=== PATIENT | female | born 1940 | race Caucasian/White ===

== ENCOUNTER 2016-09-13 09:15 | Inpatient (IN) | payer OTHER ==
[~2016-09-13 09:15] MED LIST: ACETAMINOPHEN 325 MG TAB PO ONE; CEFAZOLIN 2 GM/DEXTR 100 ML IV ONE; CHLORHEXIDINE GLUC HIBICLENS 118 ML BTL TP ONE; DEXAMETHASONE 4 MG/ML VIAL IVP ONE; FAMOTIDINE 20 MG TAB PO ONE; ROPI/epiNEPH/KETOROLAC JOINT COCKTAIL IU ONE; TRANEXAMIC ACID 3,000 MG in NS 50 ML IRR ONE
[2016-11-29] MEDS ORDERED: ACETAMINOPHEN 325 MG TAB PO ONE (06:00)
[2016-11-29] MEDS ORDERED: DEXAMETHASONE 4 MG/ML VIAL IVP ONE (06:00)
[2016-11-29] MEDS ORDERED: FAMOTIDINE 20 MG TAB PO ONE (06:00)
[2016-11-29] MEDS ORDERED: CEFAZOLIN 2 GM/DEXTR 100 ML IV ONE (06:00)
[2016-11-29] MEDS ORDERED: ROPI/epiNEPH/KETOROLAC JOINT COCKTAIL IU ONE (06:00)
[2016-11-29] MEDS ORDERED: CHLORHEXIDINE GLUC HIBICLENS 118 ML BTL TP ONE (06:00)
[2016-11-29] MEDS ORDERED: TRANEXAMIC ACID 3,000 MG in NS 50 ML IRR ONE (06:00)
[2016-11-29] MEDS ORDERED: SKIN ADHESIVE (DERMABOND) 1 EACH TP ONE (06:43)
[2016-11-29] MEDS ORDERED: TRANEXAMIC ACID 3,000 MG/50 ML BAG IRR ONE (06:43)
[2016-11-29] MEDS ORDERED: VANCOMYCIN 1 GM VIAL IV ONE (06:43)
[2016-11-29] MEDS ORDERED: LIDOCAINE 1% 2 ML INJ ONE (07:20)
[2016-11-29] MEDS ORDERED: fentaNYL 100 MCG/2 ML INJ ONE (07:40)
[2016-11-29] MEDS ORDERED: PROPOFOL/EMULSION 500 MG/50 ML BOTTLE IV ONE (07:41)
[2016-11-29 07:51] LABS: % IMMATURE GRANULYOCYTES 0.2 % (0.0-1.1); ABSOLUTE IMMATURE GRANULOCYTES 0.01 10^3/uL (0.00-0.10); ADD DIFF? NO; ADD MORPH? NO; ADD SCAN? NO; ATYPICAL LYMPHOCYTE FLAG 10 (0-99); FRAGMENT RBC FLAG 0 (0-99); HEMATOCRIT 39.8 % (38.0-47.0); HEMOGLOBIN 13.8 g/dL (12.6-16.3); LEFT SHIFT FLG 0 (0-99); LIPEMIA HEMOLYSIS FLAG 90 (0-99); MEAN CELL HEMOGLOBIN 31.8 pg (27.9-34.1); MEAN CELL HEMOGLOBIN CONCENTR. 34.7 g/dL (32.4-36.7); MEAN CELL VOLUME 91.7 fL (81.5-99.8); MEAN PLATELET VOLUME 8.5 fL (8.7-11.7); PLATELET CLUMPS FLAG 0 (0-99); PLATELET COUNT 274 10^3/uL (150-400); RED BLOOD CELL COUNT 4.34 10^6/uL (4.18-5.33); RED CELL DISTRIBUTION WIDTH 12.5 % (11.5-15.2)
[2016-11-29] MEDS ORDERED: LIDOCAINE 1% 5 ML SDV ID PRN (08:03)
[2016-11-29] MEDS ORDERED: LR 1,000 ML IV ONE (08:03)
[2016-11-29] MEDS ORDERED: MIDAZOLAM 2 MG/2 ML VIAL ONE ×2 (08:21→08:23)
--- NOTE | 2016-11-29 10:09 | POSTOPPROG ---
Post Op Note Date of Operation: 11/29/16 Surgeon: Abelardo Webb Commercial Attache: leon webb Anesthesiologist: dr. epps Anesthesia: Spinal, Other (Specify) (adductor canal block) Pre-op Diagnosis: right knee OA Post-op Diagnosis: same Indication: right knee pain due to OA that failed conservative measures Procedure: R TKA Findings: severe knee OA Inf/Abcess present in the surg proc area at time of surgery?: No EBL: 50-100
[2016-11-29] MEDS ORDERED: LACTULOSE 20 GM/30 ML UDCUP PO PRN (10:10)
[2016-11-29] MEDS ORDERED: POLYETHYLENE GLYCOL 3350 17 GM PKT PO PRN (10:10)
[2016-11-29] MEDS ORDERED: PHARMACY PAIN CONSULT 1 EA MISC PRN (10:10)
[2016-11-29] MEDS ORDERED: TEMAZEPAM 15 MG CAP PO PRN (10:10)
[2016-11-29] MEDS ORDERED: METOCLOPRAMIDE 10 MG/2 ML VIAL IVP PRN (10:10)
[2016-11-29] MEDS ORDERED: PROMETHAZINE HCL 25 MG SUPPR PR PRN (10:10)
[2016-11-29] MEDS ORDERED: DIPHENOXYLATE/ATROPINE LOMOTIL 1 TAB PO PRN (10:10)
[2016-11-29] MEDS ORDERED: diphenhydrAMINE 25 MG CAP PO PRN (10:10)
[2016-11-29] MEDS ORDERED: MAGNESIUM HYDROXIDE 30 ML UDCUP PO PRN (10:10)
[2016-11-29] MEDS ORDERED: ONDANSETRON DISINTEGRATING 4 MG TAB PO PRN (10:10)
[2016-11-29] MEDS ORDERED: ONDANSETRON 4 MG/2 ML VIAL IVP PRN (10:10)
[2016-11-29] MEDS ORDERED: PROMETHAZINE HCL 25 MG/ML INJ IVP PRN (10:10)
[2016-11-29] MEDS ORDERED: BISACODYL 10 MG SUPP PR PRN (10:10)
[2016-11-29] MEDS ORDERED: LR 1,000 ML IV SCH (10:30)
[2016-11-29] MEDS: oxyCODONE IR 5 MG TAB PO PRN ×4 (12:05→23:43)
[2016-11-29] MEDS: ACETAMINOPHEN 325 MG TAB PO SCH ×3 (12:06→23:44)
[2016-11-29] MEDS: ceFAZolin 2 GM/DEXTROSE 100 ML IV SCH ×2 (14:54→22:01)
[2016-11-29] MEDS: CYCLOBENZAPRINE 10 MG TAB PO PRN (18:33)
[2016-11-29] MEDS: ASPIRIN 325 MG TAB PO SCH (20:13)
[2016-11-29] MEDS: FAMOTIDINE 20 MG TAB PO SCH (20:13)
[2016-11-29] MEDS: SENNOSIDES/DOCUSATE SODIUM TAB PO SCH (20:14)
[2016-11-29] MEDS ORDERED: clonazePAM 0.5 MG TAB PO SCH (21:00)
[2016-11-29] MEDS ORDERED: SERTRALINE HCL 50 MG TAB PO SCH (22:00)
[2016-11-30 03:37] VITALS: PULSE 62
[2016-11-30] MEDS: ACETAMINOPHEN 325 MG TAB PO SCH ×2 (05:35→11:59)
[2016-11-30] MEDS: oxyCODONE IR 5 MG TAB PO PRN ×3 (05:35→11:59)
[2016-11-30 05:49] LABS: HEMATOCRIT 31.5 % (38.0-47.0)
[2016-11-30] MEDS ORDERED: LEVOTHYROXINE 88 MCG TAB PO SCH (06:00)
[2016-11-30 06:02] LABS: ANION GAP 6 mEq/L (8-16); CALCIUM 8.8 mg/dL (8.5-10.4); CARBON DIOXIDE 24 mEq/l (22-31); CHLORIDE 102 mEq/L (97-110); CREATININE 0.8 mg/dL (0.6-1.0); GLOMERULAR FILTRATION RATE > 60; GLUCOSE 90 mg/dL (70-100); POTASSIUM 3.8 mEq/L (3.5-5.2); SODIUM 132 mEq/L (134-144)
[2016-11-30 08:09] VITALS: BP 137/75; RESP 16; TEMP 97.7
[2016-11-30] MEDS: ASPIRIN 325 MG TAB PO SCH (08:24)
[2016-11-30] MEDS: FAMOTIDINE 20 MG TAB PO SCH (08:25)
[2016-11-30] MEDS: SENNOSIDES/DOCUSATE SODIUM TAB PO SCH (08:25)
[2016-11-30] MEDS: CYCLOBENZAPRINE 10 MG TAB PO PRN (08:25)
[2016-11-30] MEDS ORDERED: SERTRALINE HCL 50 MG TAB PO SCH (09:00)
[2016-11-30] MEDS ORDERED: FORMOTEROL IH SCH (09:00)
[2016-11-30] MEDS ORDERED: BUDESONIDE IH SCH (09:00)
[2016-11-30] MEDS ORDERED: NON-FORMULARY NEW DRUG (Fluticasone Nasal [Flonase Nasal Spray] 1 SPRAYS) EACHNARE SCH (09:00)
[2016-11-30] MEDS ORDERED: FLUTICASONE NASAL 120 SPRAYS/16 GM MDI EACHNARE SCH (09:00)
--- NOTE | 2016-11-30 09:18 | SOAPPROG ---
SOAP Progress Note Assessment/Plan: Assessment: Patient is doing well POD 1 s/p R TKA 1.Pain management: pain is well controlled on oral pain meds 2.Anemia: level is expected initially postop. Asymptomatic. Cont to monitor for symptoms 3.VTE ppx: recommend aspirin 325mg daily. Cont LEFTY hose and SCD 4. d/c planning: d/c to home today pending release from PT 5. muscle spasm: alleviated by flexeril, will sent script to pharmacy from our EMR system this morning. 6. postop urinary retention: resolved today. Plan: 11/30/16 09:17 11/30/16 09:18 Subjective: Beth is doing well today, denies SOB, chest pain and n/v. muscle spasm alleviated with flexeril. Objective: Vital Signs Temp Pulse Resp BP Pulse Ox 36.5 C 62 16 137/75 H 95 11/30/16 08:00 11/30/16 08:00 11/30/16 08:00 11/30/16 08:00 11/30/16 08:00 Laboratory Results 11/30/16 05:15 11/30/16 05:15 11/29/16 11/30/16 12/01/16 05:59 05:59 05:59 Intake Total 4750 Output Total 2905 500 Balance 1845 -500 RLE: incision dressing is clean and dry, NVI, +pf/df ICD10 Worksheet Patient Problems: Problems Problem Status Onset Primary localized osteoarthritis of right knee Acute
[2016-11-30 10:23] VITALS: O2SAT 96
--- NOTE | 2016-11-30 11:21 | GDS ---
[f rep st] DISCHARGE SUMMARY ADMISSION DIAGNOSIS: Right knee osteoarthritis. DISCHARGE DIAGNOSIS: Right knee osteoarthritis. PROCEDURE: Right total knee arthroplasty. VTE PROPHYLAXIS: Aspirin recommend 3 weeks daily. BRIEF DESCRIPTION OF HOSPITAL STAY: Patient was admitted for an elective joint arthroplasty. The p atient tolerated the procedure well and has passed physical therapy. The patient was given appropri ate antibiotic prophylaxis and venous thromboembolism prophylaxis. The patient's pain was well cont rolled on oral pain medication, patient was holding down food, and had urinated. Decision was made to discharge the patient. The patient was given post-operative prescriptions pre-operatively. PLAN: Please follow up as scheduled to Dr. Noriega's office December 19 at 11 a.m. /[id number]/MODL
--- NOTE | 2016-11-30 12:22 | GOP ---
[f rep st] OPERATIVE REPORT DATE OF OPERATION: 11/29/2016 SURGEON: India Noriega MD CORN HUSKER: Meghann Noriega PA-C ANESTHESIA: Spinal. PREOPERATIVE DIAGNOSIS: Right knee osteoarthritis. POSTOPERATIVE DIAGNOSIS: Right knee osteoarthritis. PROCEDURE PERFORMED: Right total knee arthroplasty. FINDINGS: ESTIMATED BLOOD LOSS: 30 cc. PATHOLOGY: Severe lateral and patellofemoral osteoarthritis. INDICATIONS: This is a 76-year-old female with severe and progressive pain and deformity of the right knee unresponsive to conservative care. Risks and benefits of the surgical intervention were explained in detail. DESCRIPTION OF PROCEDURE: The patient was brought to the operative room and placed on the table in the supine position. Spinal anesthesia was induced without difficulty. A pneumatic tourniquet was applied about the right proximal thigh, and the leg was prepped and draped in a sterile fashion. The leg delong was applied. After exsanguination by elevation the tourniquet was inflated to 250 mm of mercury. Incision was made anterior medial from the tibial tuberosity to a point 2 cm proximal to the superior pole of the patella. Medial parapatellar arthrotomy was carried out from the superior pole of the patella and posteriorly in line with the fibers of the Type II VMO. The medial collateral ligament was elevated and the infrapatellar fat pad was resected. The patella was everted and the articular surface was excised. A 32 mm patellar button was placed. The distal femoral guide hole was drilled and the 6 degree alignment paul was placed. A 10 mm distal femoral cut was made without difficulty. Attention was turned to the tibia and a standard 4 mm cut based on the medial tibial condyle was performed. The tibial articular surface was excised without difficulty. Attention was turned back to the femur and a size 4 Triathlon femoral cutting block was positioned. Anterior, posterior, and chamfer cuts were made, followed by the intercondylar box cut. The knee was extended and the remnants of the medial and lateral meniscus were excised. The posterior capsule was injected with ropivacaine, epinephrine and Toradol. A size 4 MIS mini-keel tibial tray was positioned. Trial reduction was then carried out. There was excellent range of motion, alignment, and stability using the 9 mm polyethylene. All trials were then removed. The joint was thoroughly irrigated and carefully dried. Two packages of cement and 2 grams of vancomycin were mixed in the vacuum mixer and placed on the fixation surfaces of all surfaces of the components. The components were implanted and all excess cement was thoroughly removed. The permanent 9 mm polyethylene X3 was placed without difficulty. The tourniquet was deflated and all bleeders were coagulated. The wound was thoroughly irrigated and closed using interrupted sutures of 2-0 Vicryl for the joint capsule. The subcu was closed with 3-0 Vicryl and the skin with 4-0 Monocryl. Dermabond and Steri-Strips were applied followed by a compressive dressing. The patient was then moved from the operating room to the recovery room in good condition, having tolerated the procedure well. /[id number]/MODL MTDD
== END 2016-11-30 12:41 | disposition home or self-care (01) | DRG 470 ==
LOC: F3N 11-29 06:26
PROVIDERS: ADMIT Orthopaedic Surgery; ATTEND Orthopaedic Surgery
PROC: 0SRC0J9 Replacement of Right Knee Joint with Synthetic Substitute, Cemented, Open Approach (ICD-10-PCS; principal; 2016-11-29 09:15)
DX: M17.11 Unilateral primary osteoarthritis, right knee (principal); I10 Essential (primary) hypertension; E03.9 Hypothyroidism, unspecified; J45.909 Unspecified asthma, uncomplicated
CPT/HCPCS: 97116-GP; 97161-GP; 97165-GO; 97530-GP; C1713; G8978-GP-CI; G8979-GP-CI; G8980-GP-CI; G8987-GO-CI; G8988-GO-CI; G8989-GO-CI; J0171; J0690; J1100; J1885; J2250; J2704; J2795; J3010; J3370